=== PATIENT | female | born 1985 | race Caucasian/White ===

== ENCOUNTER 2018-12-10 07:15 | Emergency (ER) | payer MEDICAID ==
[2018-12-10 07:24] VITALS: BP 114/82
--- NOTE | 2018-12-10 07:46 | EDM.PDOC ---
ED HPI GENERAL MEDICAL PROBLEM - General Chief Complaint: Upper Extremity Injury/Pain Stated Complaint: FELL LANDED ON WRIST Time Seen by Provider: 12/10/18 07:28 Source of Information: Reports: Patient, EMS, RN Notes Reviewed History Limitations: Reports: No Limitations - History of Present Illness INITIAL COMMENTS - FREE TEXT/NARRATIVE: 33-year-old female presents emergency department today complaint of right wrist pain she is currently in the process of moving she tripped over some boxes at home fell on an outstretched hand she is having significant pain was brought in by EMS services. She can move all her digits pain is primary in the wrist she received 50 g of fentanyl intranasally for pain and she is comfortable at this time Right Wrist Pain Score (Numeric/FACES): 6 - Related Data Allergies Allergy/AdvReac Type Severity Reaction Status Date / Time cephalexin monohydrate Allergy Hives Verified 12/10/18 07:24 [From Keflex] acetaminophen AdvReac Vomiting Verified 12/10/18 07:24 [From Tylenol-Codeine #3] codeine phosphate AdvReac Vomiting Verified 12/10/18 07:24 [From Tylenol-Codeine #3] fluticasone propionate AdvReac Mouth Sores Verified 12/10/18 07:24 [From Advair Diskus] salmeterol xinafoate AdvReac Mouth Sores Verified 12/10/18 07:24 [From Advair Diskus] Home Meds: Home Meds Albuterol Sulfate [Albuterol Sulfate HFA] 2 puff IH Q4HR PRN 06/10/14 [History] Cetirizine HCl [Zyrtec] 10 mg PO DAILY 02/01/15 [History] Montelukast [Singulair] 10 mg PO BEDTIME 02/01/15 [History] Zolpidem Tartrate [Ambien] 5 mg PO BEDTIME PRN 02/01/15 [History] Past Medical History Respiratory History: Reports: Asthma Gastrointestinal History: Reports: Hepatitis Genitourinary History: Reports: Acute Renal Failure Other Genitourinary History: 2007 kidney failure r/t Motrin OD for abcess tooth 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: Musculoskeletal History: Reports: Back Pain, Chronic Neurological History: Reports: Concussion Psychiatric History: Reports: Anxiety, Bipolar, Depression, Other (See Below) Other Psychiatric History: says she's not on medication; 'controls it just fine' Endocrine/Metabolic History: Reports: Other (See Below) Other Endocrine/Metabolic History: 2010 Acute Liver failure; Hep C Hematologic History: Reports: Other (See Below) Other Hematologic History: HEP C - Infectious Disease History Infectious Disease History: Reports: Hepatitis C - Past Surgical History Head Surgeries/Procedures: Reports: None Respiratory Surgical History: Reports: None GI Surgical History: Reports: None Female Surgical History: Reports: Section Endocrine Surgical History: Reports: None Neurological Surgical History: Reports: None Musculoskeletal Surgical History: Reports: None Social & Family History - Tobacco Use Smoking Status *Q: Former Smoker Years of Tobacco use: 20 Packs/Tins Daily: 0.5 Used Tobacco, but Quit: No Second Hand Smoke Exposure: Yes - Caffeine Use Caffeine Use: Reports: Coffee, Soda - Recreational Drug Use Recreational Drug Use: Yes Drug Use in Last 12 Months: Yes Recreational Drug Type: Reports: Codiene, Heroin, Marijuana/Hashish, Methamphetamine Recreational Drug Use Frequency: Daily Recreational Drug Last Use: t-1 Review of Systems - Review of Systems Review Of Systems: See Below Musculoskeletal: Reports: Joint Pain (Wrist pain) Neurological: Reports: No Symptoms ED EXAM, GENERAL - Physical Exam Exam: See Below Free Text/Narrative:: Examination the right wrist she has full range of motion of all digits radial pulses +2 there is tenderness to any movement or palpation of the right wrist Exam Limited By: No Limitations General Appearance: Alert, WD/WN, No Apparent Distress Skin Exam: Ecchymosis ED TRAUMA EXTREMITY PROCEDURES - Splinting Right Upper Extremity Pre-Procedure NV Status: Normal Post-Procedure NV Status: Normal Splint Material: Fiberglass Splint Design: Volar Applied & Form Fitted By: Provider, Nurse Provider Post-Splint Application NV Check: NV Status Normal, Good Position Complications: No Course - Vital Signs Last Recorded V/S: Last Vital Signs Temp 95 F L 12/10/18 07:31 Pulse 83 12/10/18 07:31 Resp 16 12/10/18 07:31 BP 114/82 12/10/18 07:31 Pulse Ox 99 12/10/18 07:31 - Orders/Labs/Meds Orders: Active Orders 24 hr Category Date Time Status Wrist Comp Min 3V Rt [CR] Stat Exams 12/10/18 07:43 Taken Departure - Departure Time of Disposition: 08:38 Disposition: Home, Self-Care 01 Condition: Fair Clinical Impression: Closed right radial fracture Qualifiers: Encounter type: initial encounter Radius location: distal Fracture morphology: Colles' Qualified Code(s): S52.531A - Colles' fracture of right radius, initial encounter for closed fracture - Discharge Information Referrals: PCP,None [Primary Care Provider] - Forms: ED Department Discharge Additional Instructions: Please call to the [facility] wednesday for an appointment time with orthopedics next week - My Orders Last 24 Hours: My Active Orders 12/10/18 07:43 Wrist Comp Min 3V Rt [CR] Stat - Assessment/Plan Last 24 Hours: My Active Orders 12/10/18 07:43 Wrist Comp Min 3V Rt [CR] Stat Plan: Assessment Acuity = acute Site and laterality = distal radius fracture closed minimal displacement right Etiology = secondary to a fall on outstretched hand Manifestations = pain Location of injury = Home Lab values = x-ray describes fracture above Plan [facility] slight volar flexation volar splint follow-up with orthopedics next 3-5 days hydrocodone 5/325 one tab by mouth 3 times a day when necessary total #10 provided for pain control. This note was dictated using Stylesight voice recognition software please call with any questions on syntax or grammar.
--- NOTE | 2018-12-10 08:51 | CRLCR ---
Indication: Fall. Pain. Technique: Three views of the right wrist were obtained. Comparison: None Findings: A comminuted intra-articular distal radial fracture is identified. There is 15 degrees of angulation with the vertex anterior. Comminuted fracture of the ulnar styloid is seen. Impression: Distal radial and ulnar fractures. Dictated by Fanny Rasmussen MD @ Dec 10 2018 8:48AM Signed by Dr. Fanny Rasmussen @ Dec 10 2018 8:49AM
== END 2018-12-10 10:21 | disposition home or self-care (01) ==
LOC: JP.ED 07:15
DX: S52.531A Colles' fracture of right radius, initial encounter for closed fracture (principal); F31.9 Bipolar disorder, unspecified; F41.9 Anxiety disorder, unspecified; Z87.891 Personal history of nicotine dependence; X50.0XXA Overexertion from strenuous movement or load, initial encounter; Z88.1 Allergy status to other antibiotic agents; Z79.899 Other long term (current) drug therapy; Z88.8 Allergy status to other drugs, medicaments and biological substances
CPT/HCPCS: 29125; 73110-RT; 99283-25

== ENCOUNTER 2018-12-15 23:42 | Emergency (ER) | payer MEDICAID ==
[2018-12-16 00:11] VITALS: BP 139/85
--- NOTE | 2018-12-16 01:07 | EDM.PDOC ---
ED HPI GENERAL MEDICAL PROBLEM - General Chief Complaint: Upper Extremity Injury/Pain Stated Complaint: PAIN IN BROKEN RIGHT ARM Time Seen by Provider: 12/16/18 01:05 Source of Information: Reports: Patient History Limitations: Reports: No Limitations - History of Present Illness INITIAL COMMENTS - FREE TEXT/NARRATIVE: pt was casted wed. She ran out of her vicodin on wed. She is using motrin at this point. Onset: Today, Sudden Duration: Hour(s): Location: Reports: Upper Extremity, Right Associated Symptoms: Reports: No Other Symptoms Right Arm Pain Score (Numeric/FACES): 5 - Related Data Allergies Allergy/AdvReac Type Severity Reaction Status Date / Time cephalexin monohydrate Allergy Hives Verified 12/16/18 00:09 [From Keflex] acetaminophen AdvReac Vomiting Verified 12/16/18 00:09 [From Tylenol-Codeine #3] codeine phosphate AdvReac Vomiting Verified 12/16/18 00:09 [From Tylenol-Codeine #3] fluticasone propionate AdvReac Mouth Sores Verified 12/16/18 00:09 [From Advair Diskus] salmeterol xinafoate AdvReac Mouth Sores Verified 12/16/18 00:09 [From Advair Diskus] Home Meds: Home Meds Albuterol Sulfate [Albuterol Sulfate HFA] 2 puff IH Q4HR PRN 06/10/14 [History] Cetirizine HCl [Zyrtec] 10 mg PO DAILY 02/01/15 [History] Montelukast [Singulair] 10 mg PO BEDTIME 02/01/15 [History] Zolpidem Tartrate [Ambien] 5 mg PO BEDTIME PRN 02/01/15 [History] Past Medical History HEENT History: Reports: Impaired Vision Respiratory History: Reports: Asthma Gastrointestinal History: Reports: Hepatitis Genitourinary History: Reports: Acute Renal Failure Other Genitourinary History: 2007 kidney failure r/t Motrin OD for abcess tooth 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: Musculoskeletal History: Reports: Back Pain, Chronic Neurological History: Reports: Concussion Psychiatric History: Reports: Anxiety, Bipolar, Depression, Other (See Below) Other Psychiatric History: says she's not on medication; 'controls it just fine' Endocrine/Metabolic History: Reports: Other (See Below) Other Endocrine/Metabolic History: 2010 Acute Liver failure; Hep C Hematologic History: Reports: Other (See Below) Other Hematologic History: HEP C - Infectious Disease History Infectious Disease History: Reports: Hepatitis C - Past Surgical History Head Surgeries/Procedures: Reports: None HEENT Surgical History: Reports: None Respiratory Surgical History: Reports: None GI Surgical History: Reports: None Female Surgical History: Reports: Section Endocrine Surgical History: Reports: None Neurological Surgical History: Reports: None Musculoskeletal Surgical History: Reports: None Social & Family History - Tobacco Use Smoking Status *Q: Current Every Day Smoker Years of Tobacco use: 20 Packs/Tins Daily: 0.5 Used Tobacco, but Quit: No Second Hand Smoke Exposure: No - Caffeine Use Caffeine Use: Reports: Coffee, Soda - Recreational Drug Use Recreational Drug Use: Yes Drug Use in Last 12 Months: Yes Recreational Drug Type: Reports: Marijuana/Hashish Recreational Drug Use Frequency: Daily Review of Systems - Review of Systems Review Of Systems: See Below Constitutional: Reports: No Symptoms Eyes: Reports: No Symptoms Ears: Reports: No Symptoms Nose: Reports: No Symptoms Mouth/Throat: Reports: No Symptoms Respiratory: Reports: No Symptoms Cardiovascular: Reports: No Symptoms GI/Abdominal: Reports: No Symptoms Musculoskeletal: Reports: Other (increased pain in her wrist that was newly casted. ) ED EXAM, GENERAL - Physical Exam Exam: See Below Free Text/Narrative:: pt is concerned because of increased pain in the rt wrist. Exam Limited By: No Limitations General Appearance: Alert, Mild Distress Extremities: Other ( pt has good filling without excessive swelling in the hand. She was casted yesterday. An xray was taken which shows good alighnment of the reduced fracture. Pt has gone from using viocodin for pain to just motrinm so her pain may be more severe. ) Course - Vital Signs Last Recorded V/S: Last Vital Signs Temp 36.2 C 12/16/18 00:11 Pulse 81 12/16/18 00:11 Resp 16 12/16/18 00:11 BP 139/85 12/16/18 00:11 Pulse Ox 98 12/16/18 00:11 - Orders/Labs/Meds Orders: Active Orders 24 hr Category Date Time Status Wrist Comp Min 3V Rt [CR] Stat Exams 12/16/18 01:03 Taken Meds: Medications Discontinued Medications Generic Name Dose Route Start Last Admin Trade Name Freq PRN Reason Stop Dose Admin Hydrocodone Bitart/Acetaminophen 1 tab 12/16/18 01:10 12/16/18 01:19 Prim 325-5 Mg PO 12/16/18 01:11 1 tab ONETIME ONE Administration - Re-Assessments/Exams Free Text/Narrative Re-Assessment/Exam: 12/16/18 01:33 pt was given norco 5/325 while in er. Departure - Departure Time of Disposition: 01:34 Disposition: Home, Self-Care 01 Condition: Fair Clinical Impression: Colles' fracture - Discharge Information Referrals: Carmelo Long MD [Primary Care Provider] - Forms: ED Department Discharge Care Plan Goals: elevate the hand, If persistent pain see ortho in the next 2-3 days, norco 5/ 325 q6h prn for pain. - My Orders Last 24 Hours: My Active Orders 12/16/18 01:03 Wrist Comp Min 3V Rt [CR] Stat - Assessment/Plan Last 24 Hours: My Active Orders 12/16/18 01:03 Wrist Comp Min 3V Rt [CR] Stat
[2018-12-16] MEDS ORDERED: Acetaminophen/HYDROcodone 325-5 MG Tab PO ONE (01:10)
--- NOTE | 2018-12-16 01:32 | CRLCR ---
Indication: Trauma 5 days ago with increased pain. Technique: Right wrist 3 view Comparison: Right wrist 12/10/2018 Findings: Interval placement of a plaster cast which obscures some fine bony detail. Distal radial metaphyseal fracture redemonstrated with 2 millimeters dorsal displacement of the distal fracture fragment. Ulnar styloid avulsion re- demonstrated with 2 millimeters distraction. Impression: Distal radial metaphyseal fracture redemonstrated with minimal displacement as above. Ulnar styloid avulsion. Dictated by Isrrael Moreland MD @ Dec 16 2018 1:28AM Signed by Dr. Isrrael Moreland @ Dec 16 2018 1:30AM
== END 2018-12-16 01:44 | disposition home or self-care (01) ==
LOC: JP.ED 23:42
DX: S52.531D Colles' fracture of right radius, subsequent encounter for closed fracture with routine healing (principal); F41.9 Anxiety disorder, unspecified; F31.9 Bipolar disorder, unspecified; J45.909 Unspecified asthma, uncomplicated; F17.210 Nicotine dependence, cigarettes, uncomplicated; Z88.1 Allergy status to other antibiotic agents; Z88.5 Allergy status to narcotic agent; Z79.899 Other long term (current) drug therapy; X50.0XXD Overexertion from strenuous movement or load, subsequent encounter
CPT/HCPCS: 73110; 99283; A9270

== ENCOUNTER 2019-01-31 21:04 | Emergency (ER) | payer MEDICAID ==
[2019-01-31 21:32] VITALS: BP 141/89; PULSE 103
--- NOTE | 2019-01-31 22:14 | EDM.PDOC ---
ED HPI GENERAL MEDICAL PROBLEM - General Chief Complaint: Upper Extremity Injury/Pain Stated Complaint: ISSUES WITH BROKEN WRIST Time Seen by Provider: 01/31/19 21:07 Source of Information: Reports: Patient, RN History Limitations: Reports: No Limitations - History of Present Illness INITIAL COMMENTS - FREE TEXT/NARRATIVE: chief complaint: cast check This is a 34 year old female present to ER for removal of cast. She reports broke her wrist and had cast placed on December 14, 2018. She was told to have cast on for the next 4 to 6 weeks. This is the 7 week of having cast on. She has not made it back for any of her Orthopedic appointment due to transportation. She has tried to remove the cast on her own with a tremmel drill. The cast has a mid-line cast and thumb spica has been cut. The cast is being held together with shoe string. Requesting evaluation of fracture and removal of cast. Current: she is homeless, has been sleeping on friends couches or [place]. Reports daily Meth use and has Hepatitis C Onset: Gradual Onset Date: 12/14/18 Duration: Constant Location: Reports: Upper Extremity, Right (right wrist fracture) Quality: Reports: Other (arm is itchy, but doesnot have any acute pain ) Severity: Mild Improves with: Reports: Immobilization Worsens with: Reports: None Context: Reports: Other (rigth wrist fracture) Associated Symptoms: Reports: No Other Symptoms right wrist Pain Score (Numeric/FACES): 1 - Related Data Allergies Allergy/AdvReac Type Severity Reaction Status Date / Time cephalexin monohydrate Allergy Hives Verified 01/31/19 21:59 [From Keflex] acetaminophen AdvReac Vomiting Verified 01/31/19 21:59 [From Tylenol-Codeine #3] codeine phosphate AdvReac Vomiting Verified 01/31/19 21:59 [From Tylenol-Codeine #3] fluticasone propionate AdvReac Mouth Sores Verified 01/31/19 21:59 [From Advair Diskus] salmeterol xinafoate AdvReac Mouth Sores Verified 01/31/19 21:59 [From Advair Diskus] Home Meds: Home Meds Albuterol Sulfate [Albuterol Sulfate HFA] 2 puff IH Q4HR PRN 06/10/14 [History] Cetirizine HCl [Zyrtec] 10 mg PO DAILY 02/01/15 [History] Montelukast [Singulair] 10 mg PO BEDTIME 02/01/15 [History] Zolpidem Tartrate [Ambien] 5 mg PO BEDTIME PRN 02/01/15 [History] Past Medical History HEENT History: Reports: Impaired Vision Respiratory History: Reports: Asthma Gastrointestinal History: Reports: Hepatitis Genitourinary History: Reports: Acute Renal Failure Other Genitourinary History: 2007 kidney failure r/t Motrin OD for abcess tooth 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: Musculoskeletal History: Reports: Back Pain, Chronic, Fracture, Other (See Below ) Other Musculoskeletal History: right wrist fx Neurological History: Reports: Concussion Psychiatric History: Reports: Addiction, Anxiety, Bipolar, Depression, Other ( See Below) Other Psychiatric History: says she's not on medication; 'controls it just fine' Endocrine/Metabolic History: Reports: Other (See Below) Other Endocrine/Metabolic History: 2010 Acute Liver failure; Hep C Hematologic History: Reports: Other (See Below) Other Hematologic History: HEP C Immunologic History: Reports: Other (See Below) Other Immunologic History: HEPATITS C - Infectious Disease History Infectious Disease History: Reports: Hepatitis C - Past Surgical History Head Surgeries/Procedures: Reports: None Female Surgical History: Reports: Section Social & Family History - Tobacco Use Smoking Status *Q: Current Every Day Smoker Years of Tobacco use: 23 Packs/Tins Daily: 0.5 - Caffeine Use Caffeine Use: Reports: Coffee, Soda - Recreational Drug Use Recreational Drug Use: Yes Drug Use in Last 12 Months: Yes Recreational Drug Type: Reports: Marijuana/Hashish, Methamphetamine Recreational Drug Use Frequency: Daily - Living Situation & Occupation Living situation: Reports: Single (homeless, staying with variety of friends house or in the [facility] [place] Occupation: Employed Review of Systems - Review of Systems Review Of Systems: See Below Constitutional: Reports: No Symptoms Musculoskeletal: Reports: Other (right arm in short cast. cast has mid-ling cut in attempt to remove. held together with shoe strings.) Skin: Reports: Rash, Other (multi circular sore on arms and body) Neurological: Reports: No Symptoms Psychiatric: Reports: No Symptoms ED EXAM, GENERAL - Physical Exam Exam: See Below Exam Limited By: No Limitations General Appearance: Alert, WD/WN, No Apparent Distress Eye Exam: Bilateral Eye: EOMI Head: Atraumatic, Normocephalic Neck: Supple, Full Range of Motion Respiratory/Chest: No Respiratory Distress Extremities: Other (right forearm in short cast. ) Neurological: Alert, Oriented Psychiatric: Normal Affect, Normal Mood Skin Exam: Warm, Dry, Rash Lymphatic: No Adenopathy Course - Vital Signs Last Recorded V/S: Last Vital Signs Temp 36.8 C 01/31/19 21:49 Pulse 103 H 01/31/19 21:49 Resp 16 01/31/19 21:49 BP 141/89 H 01/31/19 21:49 Pulse Ox 97 01/31/19 21:49 - Re-Assessments/Exams Free Text/Narrative Re-Assessment/Exam: 01/31/19 22:19 discussed with Ms. Marr will do X-ray to evaluate fracture will order food to eat as she is homeless and hasn't eaten today. Ms. Marr agree with plan of care. 01/31/19 23:12 radiology report. interval healing of the transverse fracture of the distal radius, with new mild dorsal angulation of the distal fracture fragment but with new mild dorsal angulation of the distal fracture fragment.but with elimination of the previously seen minimal dorsal displacement. no change in moderately distracted avulsion fracture of the tip of the ulnar styloid with no sign of healing of this fracture. plan: -discussed result of x-ray report -will apply mario alberto wrap to stabilize the cast -referral to Orthopedic for further care of fracture Ms. Marr agree with plan of care. Departure - Departure Time of Disposition: 23:18 Disposition: Home, Self-Care 01 Condition: Good Clinical Impression: Fracture of radius and ulna - Discharge Information *PRESCRIPTION DRUG MONITORING PROGRAM REVIEWED*: Not Applicable *COPY OF PRESCRIPTION DRUG MONITORING REPORT IN PATIENT AMILCAR: Not Applicable Instructions: Cast or Splint Care, Adult, Wrist Fracture Treated With Immobilization, [id number] Referrals: Carmelo Long MD [Primary Care Provider] - Forms: ED Department Discharge Care Plan Goals: wrist fracture -keep cast on -referral to Orthopedics - Problem List & Annotations (1) Fracture of radius and ulna SNOMED Code(s): 14398502 Code(s): S52.90XA - UNSP FRACTURE OF UNSP FOREARM, INIT FOR CLOS FX; S52.209A - UNSP FRACTURE OF SHAFT OF UNSP ULNA, INIT FOR CLOS FX Status: Acute Priority: High Current Visit: Yes Qualifiers: Encounter type: subsequent encounter Laterality: right Fracture healing: with delayed healing - Problem List Review Problem List Initiated/Reviewed/Updated: Yes - Assessment/Plan Plan: wrist fracture -keep cast on -referral to Orthopedics
--- NOTE | 2019-01-31 22:38 | CRLCR ---
INDICATION: Evaluate healing of fracture. COMPARISON: 12/16/2018 TECHNIQUE: AP and lateral views of the right wrist are obtained for a total of 2 views. FINDINGS: Examination is performed through a fiberglass cast which limits fine detail. Again seen is the transverse fracture of the distal radial diaphysis. The previously seen 2 millimeters of dorsal displacement of the major distal fracture fragment is no longer present. However, there is new minimal dorsal angulation of the distal fracture fragment, probably 15 degrees. There is new sclerosis at the fracture site, with new moderate periosteal bone formation, findings indicating satisfactory interval healing. The tiny avulsion fracture of the tip of the ulnar styloid is again seen to be moderately displaced in the radial direction. The bones of the carpus remain in anatomic alignment with the distal radial fracture fragment. There is no sign of significant degenerative change. The soft tissues are normal in appearance with no sign of foreign body. IMPRESSION: Interval healing of the transverse fracture of the distal radius, with new mild dorsal angulation of the distal fracture fragment, but with elimination of the previously seen minimal dorsal displacement. No change in moderately distracted avulsion fracture of the tip of the ulnar styloid, with no sign of healing of this fracture. Dictated by Jesus Best MD @ Jan 31 2019 10:32PM Signed by Dr. Jesus Best @ Jan 31 2019 10:36PM
== END 2019-01-31 23:27 | disposition home or self-care (01) ==
LOC: JP.ED 21:04
DX: S52.501D Unspecified fracture of the lower end of right radius, subsequent encounter for closed fracture with routine healing (principal); S52.201D Unspecified fracture of shaft of right ulna, subsequent encounter for closed fracture with routine healing; F17.210 Nicotine dependence, cigarettes, uncomplicated; Z88.1 Allergy status to other antibiotic agents; X58.XXXD Exposure to other specified factors, subsequent encounter
CPT/HCPCS: 73100-RT; 99283-25

== ENCOUNTER 2019-10-27 21:16 | Emergency (ER) | payer MEDICAID ==
[2019-10-27 22:01] VITALS: BP 136/83; PULSE 77
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
== END 2019-10-28 00:02 | disposition home or self-care (01) ==
LOC: JP.ED 21:16
DX: S06.0X0A Concussion without loss of consciousness, initial encounter (principal); J45.909 Unspecified asthma, uncomplicated; F17.210 Nicotine dependence, cigarettes, uncomplicated; Z88.1 Allergy status to other antibiotic agents; Z88.5 Allergy status to narcotic agent; Z88.8 Allergy status to other drugs, medicaments and biological substances; W10.8XXA Fall (on) (from) other stairs and steps, initial encounter
CPT/HCPCS: 70450; 70486; 99282; 99284-25

== ENCOUNTER 2019-12-25 19:37 | Emergency (ER) | payer MEDICAID ==
[2019-12-25 19:53] VITALS: BP 131/93; PULSE 109
[2019-12-25] MEDS ORDERED: Acetaminophen 325 MG Tab PO ONE (20:02)
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
--- NOTE | 2019-12-26 09:39 | CR ---
Fingers Fifth Digit Lt F4 CLINICAL HISTORY: Injury FINDINGS: There is a longitudinal fracture of the fifth middle phalanx with minimal displacement. This involves the proximal articular margin. IMPRESSION: Fracture fifth middle phalanx
== END 2019-12-25 21:44 | disposition critical access hospital (66) ==
LOC: JP.ED 19:37
DX: S62.627A Displaced fracture of middle phalanx of left little finger, initial encounter for closed fracture (principal); J45.909 Unspecified asthma, uncomplicated; F17.210 Nicotine dependence, cigarettes, uncomplicated; Z88.1 Allergy status to other antibiotic agents; Z88.8 Allergy status to other drugs, medicaments and biological substances; Z88.5 Allergy status to narcotic agent; Y04.0XXA Assault by unarmed brawl or fight, initial encounter
CPT/HCPCS: 73140; 99283; A9270

== ENCOUNTER 2020-09-17 09:31 | Emergency (ER) | payer MEDICAID ==
[2020-09-17] MEDS ORDERED: EPINEPHrine 1 MG/ML SDV SUBCUT ONE (09:41)
[2020-09-17] MEDS ORDERED: methylPREDNISolone Sodium Succinate 125 MG/2 ML SDV IVPUSH ONE (09:42)
[2020-09-17] MEDS ORDERED: Sodium Chloride 0.9% 1,000 ML IV SCH ×2 (09:45→12:00)
--- NOTE | 2020-09-17 10:06 | EDM.PDOC ---
ED HPI GENERAL MEDICAL PROBLEM - General Chief Complaint: Allergic Reaction Stated Complaint: ALLERGIC REACTION Time Seen by Provider: 09/17/20 10:01 Source of Information: Reports: Patient History Limitations: Reports: No Limitations - History of Present Illness INITIAL COMMENTS - FREE TEXT/NARRATIVE: pt took herion iv about 1/2 hour prior to arrival. She began to have swelling in her lips and her skin was red all over. She was itching. Onset: Today, Sudden Duration: Minutes: Location: Reports: Face, Generalized, Other (pt was having a full blown allergic reaction. ) Associated Symptoms: Reports: Shortness of Breath - Related Data Allergies Allergy/AdvReac Type Severity Reaction Status Date / Time cephalexin monohydrate Allergy Hives Verified 09/17/20 09:55 [From Keflex] acetaminophen AdvReac Vomiting Verified 09/17/20 09:55 [From Tylenol-Codeine #3] codeine phosphate AdvReac Vomiting Verified 09/17/20 09:55 [From Tylenol-Codeine #3] fluticasone propionate AdvReac Mouth Sores Verified 09/17/20 09:55 [From Advair Diskus] salmeterol xinafoate AdvReac Mouth Sores Verified 09/17/20 09:55 [From Advair Diskus] heroin Allergy Anaphylactic Uncoded 09/17/20 10:44 Shock Home Meds: Home Meds Albuterol Sulfate [Albuterol Sulfate HFA] 2 puff IH Q4HR PRN 06/10/14 [History] Past Medical History HEENT History: Reports: Impaired Vision Respiratory History: Reports: Asthma Gastrointestinal History: Reports: Hepatitis Genitourinary History: Reports: Acute Renal Failure Other Genitourinary History: 2007 kidney failure r/t Motrin OD for abcess tooth 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: Musculoskeletal History: Reports: Back Pain, Chronic, Fracture, Other (See Below) Other Musculoskeletal History: right wrist fx Neurological History: Reports: Concussion Psychiatric History: Reports: Addiction, Anxiety, Bipolar, Depression, Suicide Attempt, Other (See Below) Other Psychiatric History: says she's not on medication; 'controls it just fine' Endocrine/Metabolic History: Reports: Other (See Below) Other Endocrine/Metabolic History: 2010 Acute Liver failure; Hep C Hematologic History: Reports: Other (See Below) Other Hematologic History: HEP C Immunologic History: Reports: Other (See Below) Other Immunologic History: HEPATITS C Dermatologic History: Reports: Other (See Below) Other Dermatologic History: adult acne - Infectious Disease History Infectious Disease History: Reports: Chicken Pox - Past Surgical History Head Surgeries/Procedures: Reports: None HEENT Surgical History: Reports: Oral Surgery Female Surgical History: Reports: Section Social & Family History - Tobacco Use Tobacco Use Status *Q: Light Tobacco User Years of Tobacco use: 25 Packs/Tins Daily: 0.5 - Caffeine Use Caffeine Use: Reports: Coffee, Soda Caffeine Use Comment: "coffee addict" - Recreational Drug Use Recreational Drug Use: Yes Recreational Drug Type: Reports: Heroin, Marijuana/Hashish Recreational Drug Use Frequency: Weekly - Living Situation & Occupation Living situation: Reports: Single (homeless, staying with variety of friends house or in the [facility] [place] by Esteban Chiu MD.) Occupation: Employed ED ROS ALLERGIC REACTION - Review of Systems Review Of Systems: See Below Constitutional: Reports: Other (pt is having an allergic reaction) HEENT: Reports: No Symptoms Respiratory: Reports: Shortness of Breath, Wheezing Cardiovascular: Reports: Palpitations Endocrine: Reports: No Symptoms GI/Abdominal: Reports: No Symptoms, Other ( pt did have a urgent stool. ) : Reports: No Symptoms Musculoskeletal: Reports: No Symptoms Skin: Reports: Rash, Erythema, Other (lips are markedly swollen) Neurological: Reports: Dizziness Psychiatric: Reports: No Symptoms ED EXAM GENERAL NO PERIP PULSE - Physical Exam Exam: See Below Text/Narrative:: PT ARRIVED WITH A HISTORY OF SHOOTING UP HERION AND HAVING A ALLERGIC REACTION. sHE HAD MARKEDLY SWOLEN LIPS, TOTAL BODY REDNESS PT IS VERY SOB. Exam Limited By: No Limitations General Appearance: Alert, Anxious, Moderate Distress Ears: Normal TMs Nose: Normal Inspection Throat/Mouth: Normal Inspection Head: Atraumatic Neck: Normal Inspection Respiratory/Chest: Other (PT IS SOB. ) Cardiovascular: Regular Rate, Rhythm, Tachycardia GI/Abdominal: Soft, Non-Tender (Female) Exam: Deferred Rectal (Female) Exam: Deferred Back Exam: Normal Inspection Extremities: Normal Inspection Neurological: Alert, Oriented, Normal Cognition Psychiatric: Anxious Course - Vital Signs Last Recorded V/S: Last Vital Signs Temp 35.7 C L 09/17/20 09:50 Pulse 77 09/17/20 11:45 Resp 13 09/17/20 11:45 BP 110/74 09/17/20 11:45 Pulse Ox 100 09/17/20 11:45 - Orders/Labs/Meds Orders: Active Orders 24 hr Category Date Time Status Sodium Chloride 0.9% [Normal Saline] 1,000 ml Med 09/17/20 09:45 Active IV ASDIRECTED Sodium Chloride 0.9% [Normal Saline] 1,000 ml Med 09/17/20 12:00 Active IV ASDIRECTED Medication Orders Sodium Chloride (Normal Saline) 1,000 mls @ 999 mls/hr IV ASDIRECTED DARLENE Last Admin: 09/17/20 10:06 Dose: 999 mls/hr Documented by: MANUEL Sodium Chloride (Normal Saline) 1,000 mls @ 999 mls/hr IV ASDIRECTED DARLENE Last Admin: 09/17/20 12:06 Dose: 999 mls/hr Documented by: MANUEL Labs: Laboratory Tests 09/17/20 09/17/20 09/17/20 Range/Units 11:03 11:03 12:17 WBC 18.7 H (4.5-11.0) K/uL RBC 4.77 (3.30-5.50) M/uL Hgb 14.5 D (12.0-15.0) g/dL Hct 44.0 (36.0-48.0) % MCV 92 (80-98) fL MCH 30 (27-31) pg MCHC 33 (32-36) % Plt Count 219 (150-400) K/uL Neut % (Auto) 84 H (36-66) % Lymph % (Auto) 10 L (24-44) % [place] % (Auto) 5 (2-6) % Eos % (Auto) 1 L (2-4) % Baso % (Auto) 0 (0-1) % Sodium 139 L (140-148) mmol/L Potassium 3.7 (3.6-5.2) mmol/L Chloride 105 (100-108) mmol/L Carbon Dioxide 22 (21-32) mmol/L Anion Gap 15.7 H (5.0-14.0) mmol/L BUN 14 D (7-18) mg/dL Creatinine 0.9 (0.6-1.0) mg/dL Est Cr Clr Drug Dosing 69.00 mL/min Estimated GFR (MDRD) > 60 (>60) Glucose 176 H (74-106) mg/dL Calcium 8.3 L (8.5-10.1) mg/dL Total Bilirubin 0.5 (0.2-1.0) mg/dL AST 14 L (15-37) U/L ALT 24 (12-78) U/L Alkaline Phosphatase 75 (46-116) U/L Total Protein 5.6 L (6.4-8.2) g/dL Albumin 3.1 L (3.4-5.0) g/dL Globulin 2.5 (2.3-3.5) g/dL Albumin/Globulin Ratio 1.2 (1.2-2.2) Urine Color Yellow (YELLOW) Urine Appearance Clear (CLEAR) Urine pH 6.5 (5.0-8.0) Ur Specific [place] 1.025 (1.008-1.030) Urine Protein 100 H (NEGATIVE) mg/dL Urine Glucose (UA) Negative (NEGATIVE) mg/dL Urine Ketones Negative (NEGATIVE) mg/dL Urine Occult Blood Negative (NEGATIVE) Urine Nitrite Negative (NEGATIVE) Urine Bilirubin Negative (NEGATIVE) Urine Urobilinogen 0.2 (0.2-1.0) EU/dL Ur Leukocyte Esterase Negative (NEGATIVE) Urine RBC 0-5 (0-5) Urine WBC 0-5 (0-5) Ur Epithelial Cells Moderate Amorphous Sediment Not seen Urine Bacteria Not seen Urine Mucus Not seen Urine Other See note Urine Opiates Screen (NEGATIVE) Ur Oxycodone Screen (NEGATIVE) Urine Methadone Screen (NEGATIVE) Ur Propoxyphene Screen (NEGATIVE) Ur Barbiturates Screen (NEGATIVE) Ur Tricyclics Screen (NEGATIVE) Ur Phencyclidine Scrn (NEGATIVE) Ur Amphetamine Screen (NEGATIVE) U Methamphetamines Scrn (NEGATIVE) Urine MDMA Screen (NEGATIVE) U Benzodiazepines Scrn (NEGATIVE) U Cocaine Metab Screen (NEGATIVE) U Marijuana (THC) Screen (NEGATIVE) 09/17/20 Range/Units 12:17 WBC (4.5-11.0) K/uL RBC (3.30-5.50) M/uL Hgb (12.0-15.0) g/dL Hct (36.0-48.0) % MCV (80-98) fL MCH (27-31) pg MCHC (32-36) % Plt Count (150-400) K/uL Neut % (Auto) (36-66) % Lymph % (Auto) (24-44) % [place] % (Auto) (2-6) % Eos % (Auto) (2-4) % Baso % (Auto) (0-1) % Sodium (140-148) mmol/L Potassium (3.6-5.2) mmol/L Chloride (100-108) mmol/L Carbon Dioxide (21-32) mmol/L Anion Gap (5.0-14.0) mmol/L BUN (7-18) mg/dL Creatinine (0.6-1.0) mg/dL Est Cr Clr Drug Dosing mL/min Estimated GFR (MDRD) (>60) Glucose (74-106) mg/dL Calcium (8.5-10.1) mg/dL Total Bilirubin (0.2-1.0) mg/dL AST (15-37) U/L ALT (12-78) U/L Alkaline Phosphatase (46-116) U/L Total Protein (6.4-8.2) g/dL Albumin (3.4-5.0) g/dL Globulin (2.3-3.5) g/dL Albumin/Globulin Ratio (1.2-2.2) Urine Color (YELLOW) Urine Appearance (CLEAR) Urine pH (5.0-8.0) Ur Specific [place] (1.008-1.030) Urine Protein (NEGATIVE) mg/dL Urine Glucose (UA) (NEGATIVE) mg/dL Urine Ketones (NEGATIVE) mg/dL Urine Occult Blood (NEGATIVE) Urine Nitrite (NEGATIVE) Urine Bilirubin (NEGATIVE) Urine Urobilinogen (0.2-1.0) EU/dL Ur Leukocyte Esterase (NEGATIVE) Urine RBC (0-5) Urine WBC (0-5) Ur Epithelial Cells Amorphous Sediment Urine Bacteria Urine Mucus Urine Other Urine Opiates Screen Negative (NEGATIVE) Ur Oxycodone Screen Negative (NEGATIVE) Urine Methadone Screen Negative (NEGATIVE) Ur Propoxyphene Screen Negative (NEGATIVE) Ur Barbiturates Screen Negative (NEGATIVE) Ur Tricyclics Screen Negative (NEGATIVE) Ur Phencyclidine Scrn Negative (NEGATIVE) Ur Amphetamine Screen Presumptive positive H (NEGATIVE) U Methamphetamines Scrn Presumptive positive H (NEGATIVE) Urine MDMA Screen Presumptive positive H (NEGATIVE) U Benzodiazepines Scrn Negative (NEGATIVE) U Cocaine Metab Screen Negative (NEGATIVE) U Marijuana (THC) Screen Presumptive positive H (NEGATIVE) Meds: Medications Generic Name Dose Route Start Last Admin Trade Name Freq PRN Reason Stop Dose Admin Sodium Chloride 1,000 mls @ 999 mls/hr 09/17/20 09:45 09/17/20 10:06 Normal Saline IV 999 mls/hr ASDIRECTED DARLENE Administration Sodium Chloride 1,000 mls @ 999 mls/hr 09/17/20 12:00 09/17/20 12:06 Normal Saline IV 999 mls/hr ASDIRECTED DARLENE Administration Discontinued Medications Generic Name Dose Route Start Last Admin Trade Name Freq PRN Reason Stop Dose Admin Epinephrine HCl 0.3 mg 09/17/20 09:41 09/17/20 09:45 Epinephrine 1 Mg/Ml Sdv SUBCUT 09/17/20 09:42 0.3 mg ONETIME ONE Administration Methylprednisolone Sodium Succinate 125 mg 09/17/20 09:42 09/17/20 09:47 Methylprednisolone Sodium Succinate 125 Mg/2 Ml Sdv IVPUSH 09/17/20 09:43 125 mg ONETIME ONE Administration Naloxone HCl 0.4 mg 09/17/20 11:37 09/17/20 12:04 Naloxone 0.4 Mg/Ml Sdv IVPUSH 09/17/20 11:38 0.4 mg ONETIME ONE Administration Naloxone HCl 0.4 mg 09/17/20 12:16 09/17/20 12:55 Naloxone 0.4 Mg/Ml Sdv IVPUSH 09/17/20 12:17 0.4 mg ONETIME ONE Administration - Re-Assessments/Exams Free Text/Narrative Re-Assessment/Exam: 09/17/20 10:40 pt was given epi .3 sub q. she had taken benadryl 50 mg prior to arrival. She was given solumeddrol 125 iv. Pt is gradually improving. She is feeling better. 09/17/20 11:36 allergic reaction is much better but pt is very lethargic. She did take benadryl 50 mg at home prior to coming in. Will obtain a drug screen. 09/17/20 14:09 PT WAS FOUND TO BE POSITIVE FOR METH. sHE WAS GIVEN NARCAN AND DID WAKE UP SOME WHEN SHE WAS FGIVEN THAT. Departure - Departure Time of Disposition: 14:01 Disposition: Home, Self-Care 01 Condition: Fair Clinical Impression: Allergic reaction, Methamphetamine abuse - Discharge Information Referrals: PCP,None [Primary Care Provider] - Forms: ED Department Discharge Care Plan Goals: PUSH FLUIDS, AVOID THE USE OF HERION, RTC IF ANY SIG PROBLEMS. Sepsis Event Note (ED) - Evaluation Sepsis Screening Result: No Definite Risk - Focused Exam Vital Signs: Vital Signs Temp Pulse Resp BP Pulse Ox 09/17/20 11:45 77 13 110/74 100 09/17/20 09:50 35.7 C L 82 19 108/68 99 - My Orders Last 24 Hours: My Active Orders 09/17/20 09:45 Sodium Chloride 0.9% [Normal Saline] 1,000 ml IV ASDIRECTED 09/17/20 12:00 Sodium Chloride 0.9% [Normal Saline] 1,000 ml IV ASDIRECTED - Assessment/Plan Last 24 Hours: My Active Orders 09/17/20 09:45 Sodium Chloride 0.9% [Normal Saline] 1,000 ml IV ASDIRECTED 09/17/20 12:00 Sodium Chloride 0.9% [Normal Saline] 1,000 ml IV ASDIRECTED
[2020-09-17] MEDS ORDERED: Naloxone 0.4 MG/ML SDV IVPUSH ONE ×2 (11:37→12:16)
[2020-09-17 11:46] VITALS: BP 110/74; PULSE 77
== END 2020-09-17 14:44 | disposition home or self-care (01) ==
LOC: JP.ED 09:31
DX: K13.0 Diseases of lips (principal); T40.2X5A Adverse effect of other opioids, initial encounter; F15.10 Other stimulant abuse, uncomplicated; R00.0 Tachycardia, unspecified; J45.909 Unspecified asthma, uncomplicated; Z72.0 Tobacco use; Z88.1 Allergy status to other antibiotic agents; Z88.6 Allergy status to analgesic agent; Z88.5 Allergy status to narcotic agent; Z88.8 Allergy status to other drugs, medicaments and biological substances
CPT/HCPCS: 36415; 80053; 80305; 81001; 85025; 96372; 96374; 96375; 96376; 99283; J0171; J2310; J2930; J7030

== ENCOUNTER 2020-12-05 20:43 | Emergency (ER) | payer MEDICAID | END 2020-12-05 21:19 | disposition left against medical advice (07) | LOC: JP.ED 20:43 | DX: K08.89 Other specified disorders of teeth and supporting structures (principal); Z53.21 Procedure and treatment not carried out due to patient leaving prior to being seen by health care provider ==